=== PATIENT | male | born 1990 | race Caucasian/White ===

== ENCOUNTER → 2023-10-09 | Outpatient (CLI) | payer OTHER ==
[~2023-10-09] MED LIST: GASTROGRAFIN SOLUTION 30ML ONE; ISOVUE-370 76% 100ML VIAL ONE
== END ==
LOC: M PLAIMG 08:53
PROVIDERS: ATTEND Physician Assistant
DX: R19.09 Other intra-abdominal and pelvic swelling, mass and lump (principal)